=== PATIENT | female | born 2005 | race African-American/Black ===

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

== ENCOUNTER 2024-12-01 07:21 | Emergency (ER) | payer OTHER ==
[2024-12-01] MEDS ORDERED: Albuterol 2.5 MG (3 mL) NEB ONE (07:53)
[2024-12-01] MEDS ORDERED: Albuterol 2.5 MG (0.5 mL) NEB ONE (07:53)
[2024-12-01 07:55] LABS: #Basophils Less than 0.03 10x3/uL (0.0-0.2); #Eosinophils 0.17 10x3/uL (0.0-0.7); #Monocytes 0.41 10x3/uL (0.11-0.59); #Neutrophils 2.00 10x3/uL (1.40-6.50); %Basophils 0.5 % (0.0-1.0); %Eosinophils 4.1 % (0.0-10.0); %Lymphocytes 37.7 % (21.0-51.0); %Monocytes 9.8 % (0.0-10.0); %Neutrophils 47.7 % (42.0-75.0); Hematocrit 39.6 % (36.0-47.0); Hemoglobin 13.5 g/dL (12.0-16.0); Mean Corpuscular Hemoglobin 30.6 pg (27.0-31.0); Mean Corpuscular Volume 89.8 fL (78.0-98.0); Platelet Count 221 10x3/uL (130-400); Red Blood Cell (RBC) Count 4.41 mill/uL (4.20-5.40); White Blood Cell (WBC) Count 4.19 10x3/uL (4.8-10.8)
[2024-12-01 08:07] LABS: BHCG - Serum Negative (NEGATIVE); Pregs Control Background? CLEAR/WHITE (CLR/WHITE); Pregs Control Bar Appear? YES (CONTROL BAR)
[2024-12-01 08:12] LABS: ALT (SGPT) 24 U/L (Less than 34); AST (SGOT) 43 U/L (11-34); Albumin 4.1 g/dL (3.1-4.5); Alkaline Phosphatase 41 U/L (40-110); Anion Gap 19 mmol/L (10-20); BUN (Urea Nitrogen) 22 mg/dL (7.0-18.7); Bilirubin, Total 0.4 mg/dL (0.3-1.2); Calc. Creatinine Clearance 0 mL/min (70-130); Calcium 9.3 mg/dL (7.8-10.44); Carbon Dioxide 18 mmol/L (22-29); Chloride 109 mmol/L (98-107); Globulin 4.1 g/dL (2.4-3.5); Glucose 85 mg/dL (70-105); Potassium 3.9 mmol/L (3.5-5.1); Sodium 142 mmol/L (136-145)
[2024-12-01 08:18] LABS: Troponin I Less than 0.010 ng/mL (< 0.028)
[2024-12-01] MEDS ORDERED: Dexamethasone 10 MG/ML VIAL ONE (08:25)
[2024-12-01] MEDS ORDERED: Magnesium 2 GM/50 ML BAG (IN WATER) ONE (08:26)
== END 2024-12-01 09:08 | disposition home or self-care (01) ==
LOC: ERS 07:21
DX: R05.1 Acute cough (principal); R06.2 Wheezing; R07.9 Chest pain, unspecified; F17.290 Nicotine dependence, other tobacco product, uncomplicated
CPT/HCPCS: 71045; 80053; 84484; 84703; 85025; 85379; 87428; 93005; 96374; 96375; J1100; J3475; J7611; J7620

== ENCOUNTER 2024-12-23 21:26 | Emergency (ER) | payer OTHER ==
[2024-12-23 22:02] LABS: #Basophils Less than 0.03 10x3/uL (0.0-0.2); #Eosinophils 0.15 10x3/uL (0.0-0.7); #Monocytes 0.40 10x3/uL (0.11-0.59); #Neutrophils 2.69 10x3/uL (1.40-6.50); %Basophils 0.2 % (0.0-1.0); %Eosinophils 2.9 % (0.0-10.0); %Lymphocytes 36.8 % (21.0-51.0); %Monocytes 7.8 % (0.0-10.0); %Neutrophils 52.1 % (42.0-75.0); Hematocrit 38.0 % (36.0-47.0); Hemoglobin 12.9 g/dL (12.0-16.0); Mean Corpuscular Hemoglobin 30.6 pg (27.0-31.0); Mean Corpuscular Volume 90.3 fL (78.0-98.0); Platelet Count 230 10x3/uL (130-400); Red Blood Cell (RBC) Count 4.21 mill/uL (4.20-5.40); White Blood Cell (WBC) Count 5.16 10x3/uL (4.8-10.8)
[2024-12-23 22:20] LABS: ALT (SGPT) 15 U/L (Less than 34); AST (SGOT) 22 U/L (11-34); Albumin 3.8 g/dL (3.1-4.5); Alkaline Phosphatase 38 U/L (40-110); Anion Gap 12 mmol/L (10-20); BUN (Urea Nitrogen) 19 mg/dL (7.0-18.7); Bilirubin, Total 0.5 mg/dL (0.3-1.2); Calc. Creatinine Clearance 0 mL/min (70-130); Calcium 8.7 mg/dL (7.8-10.44); Carbon Dioxide 23 mmol/L (22-29); Chloride 110 mmol/L (98-107); Globulin 2.9 g/dL (2.4-3.5); Glucose 94 mg/dL (70-105); Lipase 17 U/L (8-78); Potassium 3.7 mmol/L (3.5-5.1); Sodium 141 mmol/L (136-145)
[2024-12-23 22:31] LABS: Pregnancy Test - Urine (BHCG) Negative (Negative); Pregu Control Background? CLEAR/WHITE (CLR/WHITE); Pregu Control Bar Appear? YES (CONTROL BAR)
[2024-12-23 22:38] LABS: Bacteria/HPF 1+ HPF (None Seen); CAUTI Indications for Culture Acute Hematuria; Glucose, Urine (Dipstick) Normal (Negative); Leukocyte 25 Leu/uL (Negative); Protein, Urine (Dipstick) 10 mg/dL (Neg-Trace); RBC/HPF 0-3 HPF (0-3); Specific Gravity, Urine 1.034 (1.002-1.036)
[2024-12-23 22:40] LABS: Urine Culture Reflex No No
[2024-12-23] MEDS ORDERED: Pantoprazole 40 MG DR.TAB ONE (22:47)
[2024-12-23] MEDS ORDERED: Mag-Al 1200 mg/1200 mg/30 ML UDCUP ONE (22:48)
[2024-12-23] MEDS ORDERED: Lidocaine Viscous Sol 2% 15 ml UD Cup ONE (22:48)
== END 2024-12-24 00:06 | disposition home or self-care (01) ==
LOC: ERS 21:26
DX: K21.9 Gastro-esophageal reflux disease without esophagitis (principal); F17.290 Nicotine dependence, other tobacco product, uncomplicated
CPT/HCPCS: 36415; 76705; 80053; 81001; 81025; 83690; 84484; 85025; 93005; Q0162